=== PATIENT | male | born 1955 | race Caucasian/White ===

== ENCOUNTER 2019-01-21 17:56 | Inpatient (IN) | payer MEDICAID ==
[~2019-01-21] VITALS: Ht 188 cm; Wt 283.5 kg
[~2019-01-21 17:56] MED LIST: AMLO5TAB15 PO; BUPR100T14 PO; CLON0.2T PO; HCTZ25T PO; HYDR-2595 PO; METF-370 PO; METO-159 PO; QUET300T23 PO; SIMV-8 PO; TOPI25CA5 PO
[2019-01-21 20:00] LABS: Basophils # (auto) 0.1 uL; Basophils % (auto) 0.7 % (0.0-2.0); Eosinophils # (auto) 0.2 uL; Eosinophils % (auto) 1.4 % (0.0-7.0); Hematocrit 49.8 % (41.0-53.0); Hemoglobin 16.4 g/dL (13.5-17.5); Lymphocytes # (auto) 2.5 uL; Lymphocytes % (auto) 19.3 % (10.0-50.0); Mean Corpuscular Hgb Conc. 32.9 g/dL (32.0-36.0); Mean Corpuscular Volume 94.3 fL (80.0-100.0); Neutrophils # (auto) 9.3 uL; Neutrophils % (auto) 70.6 % (37.0-80.0); Platelet Count (auto) 332 10^3/uL (140-450); Red Blood Cells 5.28 10^6/uL (4.5-5.90); Red Cell Distribution Width 15.1 % (11.8-14.3); White Blood Cell 13.2 10^3/uL (4.4-10.8)
[2019-01-21 20:14] LABS: INR 0.95 (0.9-1.15); Partial Thromboplastin Time 22.8 sec (23.64-32.05)
[2019-01-21] MEDS ORDERED: ENOXAPARIN SOD 120 MG/0.8 ML SYRINGE SC ONE (21:15)
[2019-01-21] MEDS ORDERED: TEMAZEPAM 15 MG CAP PO PRN (23:45)
[2019-01-21] MEDS ORDERED: DEXTROSE (50%) 50ML SYRG IV PRN (23:45)
[2019-01-21] MEDS ORDERED: ONDANSETRON HCL 4 MG/2 ML VIAL IV PRN (23:45)
[2019-01-21] MEDS ORDERED: ACETAMINOPHEN 500 MG TAB PO PRN (23:45)
[2019-01-21] MEDS ORDERED: LORazepam 2MG/ML-1ML VIAL IV PRN (23:45)
[2019-01-21 23:49] LABS: Albumin 3.6 g/dL (3.4-5.0); Anion Gap 13 (5-15); BUN/Creatinine Ratio 9.3; Blood Urea Nitrogen 21 mg/dL (7-18); Calcium 8.9 mg/dL (8.5-10.1); Carbon Dioxide 24 mmol/L (21-32); Chloride 103 mmol/L (98-107); GFR African American 38 mL/min; GFR Non-African American 31 mL/min; Glucose 140 mg/dL (74-106); Sodium 140 mmol/L (136-145)
[2019-01-21 23:51] LABS: Alanine Aminotransferase 18 U/L (16-61); Alkaline Phosphatase 99 U/L (45-117); Aspartate Aminotransferase 19 U/L (15-37); Bilirubin, Total 0.8 mg/dL (0.2-1.0); Total Protein 7.1 g/dL (6.4-8.2)
[2019-01-22] MEDS ORDERED: QUEtiapine FUMARATE 100 MG TAB PO ONE
[2019-01-22 00:48] VITALS: BP 119/78
--- NOTE | 2019-01-22 00:57 | NUR ---
Telemetry admit from [facility] MIRANDA admitted to Telemetry unit. Patient oriented to clay DO RN, unit, room, bed, and unit policies regarding patient care and visiting hours. Patient now on continuous telemetry monitoring, tele box #[id number] and telemetry reading on arrival to unit is SR with BBB. Patient weighed by bed scale and encouraged to call if they need something. All questions and concerns addressed, patient verbalized understanding. Call goldberg with in reach, bed in low position.
[2019-01-22] MEDS ORDERED: POTASSIUM CHL 20 Meq TABLET PO ONE ×2 (01:30→08:15)
[2019-01-22 05:42] VITALS: BP 108/76
[2019-01-22] MEDS: cloNIDine HCL 0.1 MG TAB PO SCH ×2 (06:00→13:22)
[2019-01-22] MEDS: ACCU-CHEK COMFORT CURVE STRIP VI SCH ×2 (06:44→12:18)
[2019-01-22] MEDS: InsuLIN REG 1unit/0.01ml Soln (100units/ml) SC SCH ×2 (06:44→12:19)
--- NOTE | 2019-01-22 06:59 | NUR ---
Medication Reconciliation: will bring medication list today.
[2019-01-22 07:04] LABS: Basophils # (auto) 0.1 uL; Basophils % (auto) 0.8 % (0.0-2.0); Eosinophils # (auto) 0.2 uL; Eosinophils % (auto) 2.8 % (0.0-7.0); Hematocrit 45.9 % (41.0-53.0); Hemoglobin 15.3 g/dL (13.5-17.5); Lymphocytes # (auto) 2.4 uL; Lymphocytes % (auto) 30.6 % (10.0-50.0); Mean Corpuscular Hemoglobin 31.3 pg (28.0-32.0); Mean Corpuscular Hgb Conc. 33.3 g/dL (32.0-36.0); Mean Corpuscular Volume 93.9 fL (80.0-100.0); Monocytes # (auto) 0.8 uL; Monocytes % (auto) 10.2 % (0.0-12.0); Neutrophils # (auto) 4.4 uL; Neutrophils % (auto) 55.6 % (37.0-80.0); Nucleated Red Blood Cells % 0.1 %; Platelet Count (auto) 274 10^3/uL (140-450); Red Blood Cells 4.89 10^6/uL (4.5-5.90); Red Cell Distribution Width 15.1 % (11.8-14.3)
--- NOTE | 2019-01-22 07:45 | NUR ---
OPENING NOTE OBSERVED PT RESTING IN BED. EYES ARE CLOSED, EVEN RISE AND FALL OF CHEST. FALL PRECAUTIONS IN PLACE. WILL CONTINUE TO MONITOR Q1H AND PRN. CONTINUE PT CARE.
[2019-01-22 07:49] LABS: BUN/Creatinine Ratio 12.6; Calcium 8.8 mg/dL (8.5-10.1); Potassium 3.1 mmol/L (3.5-5.1)
--- NOTE | 2019-01-22 08:00 | NUR ---
SEIZURE PRECAUTIONS SEIZURE PRECAUTIONS IMPLEMENTED.
--- NOTE | 2019-01-22 08:13 | NUR ---
HYPOKALEMIA SPOKE TO DR. FU REGARDING K+ 3.1. ORDERS RECEIVED.
[2019-01-22 09:00] VITALS: BP 110/69
--- NOTE | 2019-01-22 09:00 | NUR ---
URINALYSIS UA COLLECTED AND SENT TO LAB VIA BULLET.
[2019-01-22 09:27] LABS: Urine Bacteria NONE SEEN /hpf (None Seen); Urine Blood Negative /uL (Negative); Urine WBC 2 /hpf (0 - 3)
[2019-01-22] MEDS ORDERED: buPROPion HCL 100 MG TAB PO SCH (10:00)
[2019-01-22] MEDS ORDERED: METOPROLOL SUCCINATE XL 50 MG TAB PO SCH (10:00)
[2019-01-22] MEDS ORDERED: FAMOTIDINE 20 MG TAB PO SCH (10:00)
[2019-01-22] MEDS ORDERED: APIXABAN 5 MG TAB PO SCH (10:00)
[2019-01-22] MEDS ORDERED: TOPIRAMATE 25 MG TAB PO SCH (10:00)
[2019-01-22 12:56] VITALS: BP 127/85
[2019-01-22] MEDS ORDERED: PNEUMOCOCCAL VACC POLYS 25 MCG/0.5 ML VIAL IM ONE (13:00)
--- NOTE | 2019-01-22 13:20 | NUR ---
AT BEDSIDE DR. TOUSSAINT AT BEDSIDE DISCUSSING POC WITH PT. PT TO BE DC'D HOME TODAY. NO NEW ORDERS RECEIVED AT THIS TIME. Addendum: 01/22/19 at 1405 by Fanny Muniz RN RN MD AWARE OF PENDING VQ SCAN. SCAN DOES NOT NEED TO BE COMPLETED PRIOR TO DC.
[2019-01-22] MEDS ORDERED: APIX5TAB PO (13:42)
--- NOTE | 2019-01-22 14:03 | NUR ---
ND PRESCRIPTION CONTACTED [facility] [phone]. PRESCRIPTION RECEIVED. SPOKE TO
--- NOTE | 2019-01-22 14:06 | NUR ---
DIRECTOR PROSPECT SPOKE TO GELY DUQUE REGARDING H/H ORDER. DUNIA STATING SHE WILL CALL BACK AT A LATER TIME.
--- NOTE | 2019-01-22 14:21 | NUR ---
tack cutter-I received a page from nurse Escobedo letting me know that there is a home health safety eval for this patient. I called [facility] (phone [phone]----fax [phone]) and spoke with Naima-she said they would be able to accept this patient pending auth from [facility]. I called [facility] and spoke with Joelle-she will have the auth faxed to [facility]-I spoke with nurse Escobedo-had her fax face sheet, order and H&P to [facility]-I provided her with their phone number to give to patient-they will see patient in 24 to 48 hours.
--- NOTE | 2019-01-22 14:25 | NUR ---
[facility] RECEIVED PHONE CALL FROM GELY DUQUE. DUNIA STATING [facility] TO ACCEPT PATIENT PENDING AUTH. DUNIA REQUESTING FACESHEET, H&P, AND ORDER FOR HH BE FAXED TO [facility] ([phone]). ORDER CARRIED OUT. DUNIA STATING PATIENT OK TO LEAVE ONCE INFORMATION HAS BEEN FAXED. PATIENT/FAMILY PROVIDED WITH NUMBER FOR [facility] ([phone]).
[2019-01-22 14:36] VITALS: BP 106/61
--- NOTE | 2019-01-22 14:59 | NUR ---
Discharge instructions given as ordered. Encourage to follow up with PMD as instructed. All questions and concerns addressed. Patient verbalized understanding. Medication reconciliation form completed and copy given to patient. . IV removed with catheter intact, pressure dressing applied. Telemetry unit returned to ICU. Patient taken off unit via wheelchair with all personal belongings, accompanied by staff and family member. Patient requested to ambulate from curb to car in parking lot with . No distress noted at time of departure.
[2019-01-22] MEDS ORDERED: TAMSULOSIN HYDROCHLORIDE 0.4 MG CAP PO SCH (18:00)
[2019-01-22] MEDS ORDERED: QUEtiapine FUMARATE 100 MG TAB PO SCH (22:00)
[2019-01-29] MEDS ORDERED: APIXABAN 5 MG TAB PO SCH (10:00)
== END 2019-01-22 15:04 | disposition home health service (06) | DRG 197 ==
LOC: ER 18:01 → TELE 18:02 → TELE-WESTW 01-22 00:53
PROVIDERS: ADMIT Nurse Practitioner Family; ATTEND Nurse Practitioner Family
DX: I82.411 Acute embolism and thrombosis of right femoral vein (principal); E11.22 Type 2 diabetes mellitus with diabetic chronic kidney disease; I13.0 Hypertensive heart and chronic kidney disease with heart failure and stage 1 through stage 4 chronic kidney disease, or unspecified chronic kidney disease; I50.9 Heart failure, unspecified; I82.431 Acute embolism and thrombosis of right popliteal vein; E78.5 Hyperlipidemia, unspecified; E87.6 Hypokalemia; F17.210 Nicotine dependence, cigarettes, uncomplicated; I25.10 Atherosclerotic heart disease of native coronary artery without angina pectoris; J44.9 Chronic obstructive pulmonary disease, unspecified; N18.9 Chronic kidney disease, unspecified; E66.9 Obesity, unspecified; D49.4 Neoplasm of unspecified behavior of bladder; F41.9 Anxiety disorder, unspecified; F32.9 Major depressive disorder, single episode, unspecified; Z79.84 Long term (current) use of oral hypoglycemic drugs; Z79.899 Other long term (current) drug therapy; Z83.3 Family history of diabetes mellitus; Z85.51 Personal history of malignant neoplasm of bladder; Z86.73 Personal history of transient ischemic attack (TIA), and cerebral infarction without residual deficits; I25.2 Old myocardial infarction; Z68.45 Body mass index [BMI] 70 or greater, adult
CPT/HCPCS: 36415; 71045; 80048; 80053; 81001; 82962; 83036; 83735; 83880; 85025; 85379; 85610; 85730; 93005; 93970; 94761; 96372; G0378; J1815